=== PATIENT | male | born 1950 | race Caucasian/White ===

== ENCOUNTER 2021-10-30 18:51 | Emergency (ER) | payer SELFPAY ==
[2021-10-30 19:10] VITALS: BP 185/96; PULSE 60; RESP 18; TEMP 36.6; O2SAT 96
--- NOTE | 2021-10-30 19:39 | ED.EYEPROB ---
HPI - Eye Problem <ARDEN Patel - Last Filed: 10/30/21 20:14> General Chief complaint: Eye Problems Stated complaint: Something in right eye Time Seen by Provider: 10/30/21 19:22 Source: patient Mode of arrival: Ambulatory History of Present Illness HPI Narrative: 71-year-old male, nonsmoker, presents to the emergency department with right eye discomfort after getting some floating particles into his right eye while pulling down an object from a top shelf at the local supermarket. Patient's spouse reports that they flushed the eye with normal saline at home but is still bothersome. Patient denies any direct trauma to his eye, changes in his vision or discharge. Related Data Allergies Allergy/AdvReac Type Severity Reaction Status Date / Time No Known Drug Allergies Allergy Verified 10/30/21 19:19 Review of Systems <ARDEN Patel - Last Filed: 10/30/21 20:14> Review of Systems Narrative: Narrative: GENERAL: Denies chills, fatigue, fever, sweats. See HPI HEENT: Denies sinus pain, ear pain, sore throat, difficulty swallowing, dizziness. Endorses right eye redness and pain. RESPIRATORY: Denies dyspnea, cough, wheezing, sputum. CARDIOVASCULAR: Denies chest pain, palpitations, edema. GASTROINTESTINAL: Denies nausea, vomiting, abdominal pain, diarrhea, constipation. : Denies dysuria, frequency, incontinence, hematuria, urinary retention, flank pain. MSK: Denies weakness, joint pain, or bony pain. SKIN: Denies rash, skin lesions, or pruritis. NEUROLOGIC: Denies weakness, dizziness, headache, numbness, confusion. PSYCHIATRIC: No concerning psychosocial issues. Patient History <ARDEN Patel - Last Filed: 10/30/21 20:14> Social History Smoking Status: Never smoker Smoking Status: Never smoker alcohol intake frequency: a few times a week Substance Use Type: does not use Exam <ARDEN Patel - Last Filed: 10/30/21 20:14> Narrative Exam Narrative: Exam Narrative: GENERAL: This is a well-nourished, well-developed patient, in no acute distress HEAD: Atraumatic. Normocephalic. EYES: Pupils equal round and reactive. Extraocular motions intact. Right eye with scleral injection. ENT: Nose without bleeding, purulent drainage. Throat without erythema, tonsillar hypertrophy or exudate. Airway patent. MSK: Moves all extremities. Normal range of motion, no clubbing or edema. Neurovascularly intact. NEURO: A&O x 3. SKIN: Warm, dry, no rashes or lesions noted. Initial Vital Signs Initial Vital Signs: Vital Signs Temperature 97.9 F 10/30/21 19:10 Pulse Rate 60 10/30/21 19:10 Respiratory Rate 18 10/30/21 19:10 Blood Pressure 185/96 H 10/30/21 19:10 Pulse Oximetry 96 10/30/21 19:10 Oxygen Delivery Method 10/30/21 19:10 Reviewed Eyes Visual Browning: normal visual browning by confrontation Other: I instilled 1 drop of proparacaine to the right eye, using magnifying lenses and a Q-tip inspected entire eye and under eyelids to ensure no foreign bodies were present. Through the use of fluorescein stain and a Wood's lamp, verified that there was no corneal abrasion. <Allan Wasserman MD - Last Filed: 10/31/21 01:57> Initial Vital Signs Initial Vital Signs: Vital Signs Temperature 97.9 F 10/30/21 19:10 Pulse Rate 60 10/30/21 19:10 Respiratory Rate 18 10/30/21 19:10 Blood Pressure 185/96 H 10/30/21 19:10 Pulse Oximetry 96 10/30/21 19:10 Oxygen Delivery Method 10/30/21 19:10 Procedures <ARDEN Patel - Last Filed: 10/30/21 20:14> Foreign Body EYE Location: eye (R) Topical anesthetic used: proparacaine Foreign body: other (None) Evidence of corneal penetration: No Technique: cotton tip swab Procedure performed under: direct visualization with magnification Post-procedure medication: ophthalmic antibiotic Patient tolerated procedure: well Course <ARDEN Patel - Last Filed: 10/30/21 20:14> Orders Ordered: Discontinued Medications Erythromycin (Erythromycin Ophth 1 Gm Oint) 1 applic EYE-RIGHT NOW ONE Stop: 10/30/21 20:00 Last Admin: 10/30/21 20:13 Dose: 1 applic Documented By: MENDEZ Fluorescein Sodium (Fluorescein 1 Mg Strip) 1 mg EYE-RIGHT NOW ONE Stop: 10/30/21 19:39 Last Admin: 10/30/21 19:43 Dose: 1 mg Documented By: MENDEZ Proparacaine HCl (Proparacaine 0.5% Ophth Linda) 1 drops EYE-RIGHT NOW ONE Stop: 10/30/21 19:41 Last Admin: 10/30/21 19:43 Dose: 1 drop Documented By: MENDEZ Vital Signs Vital signs: Vital Signs - 8 hr 10/30/21 19:10 10/30/21 20:18 Temperature 97.9 F Pulse Rate 60 68 Respiratory Rate 18 Blood Pressure 185/96 H 162/87 H Pulse Oximetry 96 99 Oxygen Delivery Method Room Air Room Air <Allan Wasserman MD - Last Filed: 10/31/21 01:57> Orders Ordered: Discontinued Medications Erythromycin (Erythromycin Ophth 1 Gm Oint) 1 applic EYE-RIGHT NOW ONE Stop: 10/30/21 20:00 Last Admin: 10/30/21 20:13 Dose: 1 applic Documented By: MENDEZ Fluorescein Sodium (Fluorescein 1 Mg Strip) 1 mg EYE-RIGHT NOW ONE Stop: 10/30/21 19:39 Last Admin: 10/30/21 19:43 Dose: 1 mg Documented By: MENDEZ Proparacaine HCl (Proparacaine 0.5% Ophth Linda) 1 drops EYE-RIGHT NOW ONE Stop: 10/30/21 19:41 Last Admin: 10/30/21 19:43 Dose: 1 drop Documented By: MENDEZ Vital Signs Vital signs: Vital Signs - 8 hr 10/30/21 19:10 10/30/21 20:18 Temperature 97.9 F Pulse Rate 60 68 Respiratory Rate 18 Blood Pressure 185/96 H 162/87 H Pulse Oximetry 96 99 Oxygen Delivery Method Room Air Room Air MDM - Eye Problem <ARDEN Patel - Last Filed: 10/30/21 20:14> Differential Diagnosis Differential diagnosis: Likely other (Allergic conjunctivitis) MDM Narrative Medical decision making narrative: 71-year-old male with right eye pain and redness after floating particles landed in his eye. Right eye was flushed with normal saline, anesthetized with proparacaine, inspected with a cotton Q-tip, verified no corneal abrasion with fluorescein stain and Wood's lamp. Will discharge patient home with erythromycin ointment and instructions to follow-up with their digital content manager tomorrow morning. Patient and spouse were agreeable with course of action. Discharge Plan Departure Patient Disposition: Home Clinical Impression: Foreign body of right eye Instructions: DI for Eye Allergic Reaction Activity Restrictions/Additional Instructions: *You have been diagnosed with right eye redness secondary to allergic reaction from the floating substance that fell in his eye. I am encouraged by his visual acuity, lack of foreign body in his eye, no corneal abrasion and pain relief with drops. Please follow-up with your digital content manager tomorrow without fail. You may apply a cool compress to the eye or instill cool rewetting drops for comfort. Please apply the erythromycin ointment twice daily for the next 3 days. *What to do: *Please continue to take your regular medications as directed. [ ] New medication prescriptions sent to your pharmacy: [ ] [ ] New medication written as a paper prescription [x ] No new medications given *Please follow up with your primary care provider in 2-3 days, call for an appointment. Let them know you were seen in the Emergency Department and that we ask that you be seen in follow up. We will electronically transmit a record of today's note if your PCP is in our system *If you do not have a primary care provider please contact the [facility] Resource line at [phone]. They will ask some questions about your medical history and help get you set up with a doctor in the community. ? Return to ER if you should have any new, worsening or concerning symptoms, such as worsening pain, severe headache, confusion, chest pain, difficulty breathing, fever greater than 101 F, shaking chills, persistent vomiting to the point that you cannot drink fluids, or other new or worsening symptoms. Visit Report Forms: Patient Portal/API <Allan Wasserman MD - Last Filed: 10/31/21 01:57> [facility] I was immediately available in the department for consultation. ?This documentation has been reviewed and I agree with assessment and plan. Supervised by Allan Wasserman MD
[2021-10-30] MEDS: PROPARACAINE 0.5% OPHTH SOL 1 DROPS EYE-RIGHT (19:43)
[2021-10-30] MEDS: FLUORESCEIN 1 MG STRIP EYE-RIGHT (19:43)
[2021-10-30] MEDS: ERYTHROMYCIN OPHTH 1 GM OINT 1 APPLIC EYE-RIGHT (20:13)
[2021-10-30 20:18] VITALS: BP 162/87; PULSE 68; O2SAT 99
== END 2021-10-30 20:19 | disposition home or self-care (01) ==
PROVIDERS: Emergency Provider Registered Nurse
DX: T15.91XA Foreign body on external eye, part unspecified, right eye, initial encounter (principal)
CPT/HCPCS: 65205; 99282